=== PATIENT | female | born 1970 | race African-American/Black ===

== ENCOUNTER → 2017-06-04 | Outpatient (CLI) | payer BC | END | disposition home or self-care (01) | LOC: KCIC MAMMO 12:35 | DX: Z12.31 Encounter for screening mammogram for malignant neoplasm of breast (principal) | CPT/HCPCS: 77063; 77067 ==

== ENCOUNTER 2017-08-24 05:06 | Emergency (ER) | payer BC ==
[2017-08-24] MEDS: KETOROLAC 60 MG/2 ML INJ. IM (05:38)
== END 2017-08-24 05:56 | disposition home or self-care (01) ==
LOC: ER 05:06
DX: M10.9 Gout, unspecified (principal); F41.9 Anxiety disorder, unspecified; K21.9 Gastro-esophageal reflux disease without esophagitis; E11.9 Type 2 diabetes mellitus without complications; I10 Essential (primary) hypertension; Z90.710 Acquired absence of both cervix and uterus; Z79.899 Other long term (current) drug therapy
CPT/HCPCS: 96372; 99283; J1885

== ENCOUNTER → 2019-05-05 | Outpatient (CLI) | payer BC ==
[2017-08-24 05:10] VITALS: BP 136/83
[~2019-05-05] MED LIST: ALPR0.5T PO; HYDR-3164 PO; INDO50CA15 PO; LISI1TAB20 PO; METF500T16 PO
--- NOTE | 2019-05-05 16:54 | KCIC ---
Bilateral digital screening mammograms with 3-D tomosynthesis: Reason for examination: Routine screening. History of breast reduction. Comparison is made to previous studies dated 06/04/2017 and 05/23/2015. Bilateral mammograms in CC and oblique projections were obtained with 2-D imaging and 3-D tomosynthesis imaging on a Siemens Inspiration unit and reviewed on the workstation. Interpretation was made with the benefit of CAD. The skin and nipples show no abnormalities. No abnormal axillary lymph nodes are seen. The breast parenchyma is predominantly fatty. (Breast density: Category A.) There are post reduction changes evident. There are no dominant masses, suspicious calcifications or architectural distortion. Benign calcifications are present. Impression: No evidence of malignancy. Recommend routine screening. BI-RAD Category 2: Benign. "Our facility is accredited by the [employer] Mammography [employer]." This patient's information has been entered into a reminder system for the patient to be notified with the results of her examination and a target date for the next mammogram. Electronically signed by: Janice Colbert MD (05/05/2019 4:51 PM) [id number]
== END | disposition home or self-care (01) ==
LOC: KCIC MAMMO 13:48
PROVIDERS: ATTEND Nurse Practitioner
DX: Z12.31 Encounter for screening mammogram for malignant neoplasm of breast (principal); N64.89 Other specified disorders of breast; Z98.890 Other specified postprocedural states
CPT/HCPCS: 77063; 77067

== ENCOUNTER → 2020-06-20 | Outpatient (CLI) | payer BC ==
[2017-08-24 05:10] VITALS: BP 136/83
--- NOTE | 2020-06-20 14:56 | KCIC ---
EXAM: Bilateral digital screening mammogram with tomosynthesis. HISTORY: 49-year-old female presents for screening mammography. TECHNIQUE: Full-field digital craniocaudal and mediolateral oblique 2D and 3D tomosynthesis images of both breasts are obtained for evaluation. Computer aided detection was applied. COMPARISON: 05/05/2019 BREAST PARENCHYMAL DENSITY: Level B - Scattered fibroglandular densities. FINDINGS: There is a nodular density within the superficial aspect of the subareolar right breast at the 10:00 position, without a correlate on the prior study. There are areas of asymmetry which are st able in appearance. There are benign calcifications. There is no architectural distortion. IMPRESSION: BI-RADS Category 0: Incomplete. Additional imaging needed. RECOMMENDATION: Further evaluation with a right breast sonogram targeted to nodularity at the superfi cial subareolar 10:00 position is recommended. If your mammogram demonstrates that you have dense breast tissue, which could hide abnormalities, and if you have other risk factors for breast cancer that have been identified, you might benefit from s upplemental screening tests that may be suggested by your ordering physician. Dense breast tissue, i n and of itself, is a relatively common condition. This information is not provided to cause undue c oncern, but rather to raise your awareness and to promote discussion with your physician regarding th e presence of other risk factors, in addition to dense breast tissue. A report of your mammography re sults will be sent to you and your physician. You should contact your physician if you have any ques tions or concerns regarding this report. Mammography is a sensitive method for finding small breast cancers, but it does not detect them all a nd is not a substitute for careful clinical examination. A negative mammogram does not negate a clin ically suspicious finding and should not result in delay in biopsying a clinically suspicious abnorma lity. PQRS compliance statement - Patient information was entered into a reminder system with a target due date for the next mammogram. "Our facility is accredited by the [employer] Mammography [employer]." Electronically signed by: Marine Masterson MD (06/20/2020 2:53 PM) [email or web address]
== END ==
LOC: KCIC MAMMO 13:41
PROVIDERS: ATTEND Nurse Practitioner
DX: Z12.31 Encounter for screening mammogram for malignant neoplasm of breast (principal)
CPT/HCPCS: 77063; 77067

== ENCOUNTER → 2020-06-24 | Outpatient (CLI) | payer BC, OTHER ==
[2017-08-24 05:10] VITALS: BP 136/83
--- NOTE | 2020-06-24 13:01 | RAD ---
EXAMINATION: US BREAST RT CLINICAL HISTORY: Follow-up right breast subareolar nodularity TECHNIQUE: Targeted sonographic images of the right breast and axilla COMPARISON: Screening mammogram 06/20/2020 FINDINGS: At 10:00 position in the subareolar region, there is a small ill-defined focus of increased echogenic ity in the superficial intramammary fat measuring up to 4 mm. This may correspond to the nodularity n oted on comparison mammogram. No suspicious findings in the right axilla. IMPRESSION: Probably benign hyperechoic focus in the subareolar right breast. BI-RADS ASSESSMENT: Category 3: Probably Benign RECOMMENDATION: Recommend follow-up right diagnostic mammogram and targeted right breast ultrasound in 6 months for r eevaluation. PQRS compliance statement - Patient information was entered into a reminder system with a target due date for the next mammogram. "Our facility is accredited by the [employer] Mammography [employer]." Electronically signed by: Shivam Purvis DO (06/24/2020 12:59 PM) [id number]
== END ==
LOC: US 10:32
PROVIDERS: ATTEND Nurse Practitioner
DX: R92.8 Other abnormal and inconclusive findings on diagnostic imaging of breast (principal); N63.41 Unspecified lump in right breast, subareolar
CPT/HCPCS: 76641

== ENCOUNTER → 2021-07-06 | Outpatient (CLI) | payer BC, OTHER ==
[2017-08-24 05:10] VITALS: BP 136/83
[~2021-07-06] MED LIST changes: -LISI1TAB20 PO; +LISI1TAB39 PO
--- NOTE | 2021-07-06 10:28 | KCIC ---
Bilateral diagnostic digital mammograms with 3-D tomosynthesis: Reason for examination: Follow-up right breast nodule. Comparison is made to previous studies dated back to 05/23/2015. Bilateral mammograms in CC and oblique projections were obtained with 2-D imaging and 3-D tomosynthes is imaging on a Siemens Inspiration unit and reviewed on the workstation. Interpretation was made wit h the benefit of CAD. The skin and nipples show no abnormalities. No abnormal axillary lymph nodes are seen. The breast par enchyma shows scattered fatty and fibroglandular density. (Breast density: Category B.) There are no dominant masses, suspicious calcifications or architectural distortion. Benign calcifications are pre sent. Impression: No evidence of malignancy. Ultrasound to follow. BI-RAD Category 0: Incomplete. Needs additional imaging evaluation. Right breast ultrasound: Comparison is made to previous study dated 06/24/2020. Ultrasound examination of the right breast and axilla was performed. No discrete cystic or solid nodules are seen. The hyperechoic lesion seen previously at the 10:00 pos ition has resolved and probably represents a hematoma. No abnormal appearing lymph nodes are seen in the right axilla. IMPRESSION: No focal abnormality seen in the right breast sonographically. Recommend routine mammographic follow- up. BI-RADS Category 2: Benign. "Our facility is accredited by the [employer] Mammography [employer]." This patient's information has been entered into a reminder system for the patient to be notified wit h the results of her examination and a target date for the next mammogram. Electronically signed by: Janice Colbert MD (07/06/2021 10:26 AM) [facility]
== END ==
LOC: KCIC MAMMO 08:06
PROVIDERS: ATTEND Nurse Practitioner Family
DX: R92.8 Other abnormal and inconclusive findings on diagnostic imaging of breast (principal); Z98.86 Personal history of breast implant removal
CPT/HCPCS: 76641; 77066; G0279; 77062